=== PATIENT | female | born 1980 | race Caucasian/White ===

== ENCOUNTER 2019-01-10 08:20 | Day surgery (SDC) | payer MEDICAID ==
[2019-01-10 08:48] VITALS: BMI 33.5
[2019-01-10] MEDS ORDERED: Dextrose 50% SYRINGE Inj (50 ml) ONE (09:03)
[2019-01-10 09:47] VITALS: TEMP 97.7
[2019-01-10] MEDS ORDERED: Propofol 10 mg/ml Inj (20 ML) ONE (10:04)
--- NOTE | 2019-01-10 10:45 | CP.SDSHP ---
Same Day Surgery H & P - History Proposed Procedure: colonoscopy - Allergies Allergies: Allergies Iodine and Iodide Containing Produc Allergy (Severe, Verified 08/18/16 10:27) ANAPHYLAXIS clindamycin Adverse Reaction (Intermediate, Verified 08/18/16 10:27) DIARRHEA - Physical Exam Vital Signs: Vital Signs 01/10/19 08:50 Temperature 97.7 F Pulse Rate 74 Respiratory 20 Rate Blood Pressure 117/69 O2 Sat by Pulse 100 Oximetry - Date & Time Date: 01/10/19 Time: 10:44 Short Stay Discharge - Short Stay Discharge Admitting Diagnosis/Reason for Visit: CHANGE IN BOWEL HABIT / H/O ULCERATIVE COLITIS Disposition: HOME/ ROUTINE
[2019-01-10] MEDS ORDERED: Lidocaine 2% Jelly (5 ml) TOP ONE (10:49)
[2019-01-10] MEDS ORDERED: Albuterol HFA 90 mcg/actuation (8 g) ONE (11:02)
[2019-01-10] MEDS ORDERED: Lactated Ringer's 500 ML IV SCH (12:00)
[2019-01-10 12:17] VITALS: O2SAT 100
[2019-01-10 12:20] VITALS: BP 100/58; PULSE 75; RESP 13
== END 2019-01-10 12:42 | disposition home or self-care (01) ==
LOC: C.ENDO 08:20
PROVIDERS: ATTEND Colon & Rectal Surgery
DX: K51.90 Ulcerative colitis, unspecified, without complications (principal); R19.4 Change in bowel habit
CPT/HCPCS: 45378; 82948; 84703; J2001; J2704; J7120